=== PATIENT | male | born 1995 | race Caucasian/White ===

== ENCOUNTER 2025-03-19 05:27 | Emergency (ER) | payer SELFPAY ==
[~2025-03-19] VITALS: Ht 170.2 cm; Wt 63.0 kg
[2025-03-19 05:42] VITALS: O2SAT 100
[2025-03-19] MEDS: POLYVINYL ALCOHOL OPHTH DROPS 15ML BOTHEYE STA (07:02)
[2025-03-19] MEDS: ACETAMINOPHEN 325MG TABLET PO ONE (07:02)
[2025-03-19] MEDS ORDERED: TOPUD PO (07:18)
[2025-03-19 07:36] VITALS: BP 111/63; PULSE 54; RESP 15; TEMP 36.7; O2SAT 100
== END 2025-03-19 07:40 | disposition home or self-care (01) ==
LOC: ER 05:27
DX: H16.133 Photokeratitis, bilateral (principal)
CPT/HCPCS: 99283